=== PATIENT | female | born 2000 | race Two or more races ===

== ENCOUNTER 2024-01-26 09:39 | Emergency (ER) | payer MEDICAID, OTHER ==
[~2024-01-26] VITALS: Ht 162.6 cm; Wt 116.1 kg
[~2024-01-26 09:39] MED LIST: NITR-87 PO
[2024-01-26] MEDS ORDERED: ACET500T58 PO (09:50)
[2024-01-26 10:17] VITALS: BP 38/90; PULSE 97; RESP 16; TEMP 99.2; O2SAT 98
[2024-01-26] MEDS: BENZOCAINE (DENTAL) 20 % SPRAY 60ML MT ONE (10:23)
== END 2024-01-26 10:37 | disposition home or self-care (01) ==
LOC: ER 09:39
DX: O99.611 Diseases of the digestive system complicating pregnancy, first trimester (principal); K08.89 Other specified disorders of teeth and supporting structures; Z3A.13 13 weeks gestation of pregnancy